=== PATIENT | female | born 1935 | race Two or more races ===

== ENCOUNTER 2016-09-11 10:27 | Inpatient (IN) | payer MEDICARE, OTHER ==
[~2016-09-11] VITALS: Ht 157.5 cm; Wt 83.9 kg
[2016-09-11 10:58] LABS: BASOPHILS % (AUTO) 0.4 % (0.0-2.0); DIFF TOTAL % 100 %; EOSINOPHILS % (AUTO) 0.1 % (0.0-6.0); HEMATOCRIT 40 % (33-45); HEMOGLOBIN 13.4 g/dL (11.5-14.8); LYMPHOCYTES # (AUTO) 0.7 /CMM (0.8-4.8); LYMPHOCYTES % (AUTO) 9.8 % (20.0-44.0); MEAN CORPUSCULAR HEMOGLOBIN 30 PG (26.0-33.0); MEAN CORPUSCULAR HGB CONC 34 g/dl (31.0-36.0); MEAN CORPUSCULAR VOLUME 91 fL (82-100); MONOCYTES % (AUTO) 14.3 % (2.0-12.0); NEUTROPHILS # (AUTO) 5.6 /CMM (1.8-8.9); NEUTROPHILS % (AUTO) 75.4 % (43.0-81.0); PLATELET COUNT (AUTO) 173 /CMM (150-450); RED BLOOD CELL COUNT(AUTO) 4.41 MIL/uL (4.0-5.2); WHITE BLOOD COUNT (AUTO) 7.3 K/uL (4.3-11.0)
[2016-09-11] MEDS ORDERED: IV NS 0.9% 1,000 ML ONE (11:01)
[2016-09-11] MEDS ORDERED: IV SET PRIMARY PUMP SET 1 EA INFUS.SET MC ONE ×4 (11:01→14:16)
[2016-09-11 11:02] LABS: ANION GAP 14 (5-14); CALCIUM, SERUM 9.6 mg/dL (8.5-10.1); CARBON DIOXIDE 25 mmol/L (21-32); CHLORIDE 102 mmol/L (98-107); CREATININE 2.2 mg/dL (0.6-1.3); GLUCOSE 102 mg/dL (74-106); POTASSIUM 3.2 mmol/L (3.5-5.1); SODIUM SERUM 138 mmol/L (136-145); UREA NITROGEN, BLOOD 39 mg/dL (7-18)
[2016-09-11 11:06] LABS: INR 0.9 (0.87-1.13); PROTHROMBIN TIME 9.4 SECS (9.5-12.7)
[2016-09-11 11:08] LABS: ALANINE AMINOTRANSFERASE 17 U/L (12-78); ASPARTATE AMINOTRANSFERASE 33 U/L (15-37); BILIRUBIN,DIRECT 0.1 mg/dL (0.0-0.2); BILIRUBIN,TOTAL 0.5 mg/dL (0.2-1.0); INDIRECT BILIRUBIN 0.4 mg/dL (0.0-1.1); TOTAL PROTEIN, SERUM 7.3 g/dL (6.4-8.2)
[2016-09-11 11:10] LABS: TROPONIN I < 0.017 ng/mL (0.00-0.056)
[2016-09-11 11:19] LABS: BAND % (MANUAL) 7 % (0.0-5.0); LYMPHOCYTES % (MANUAL) 7 % (16-48); PLATELET ESTIMATE ADEQUATE
[2016-09-11] MEDS ORDERED: ACETAMINOPHEN ES 500 MG TABLET ONE (11:25)
[2016-09-11 11:30] LABS: KETONES,URINE Negative (NEGATIVE); LEUKOCYTE ESTERASE ,URINE Negative (NEGATIVE); PH,URINE 5.5 (5.0-8.0)
[2016-09-11] MEDS ORDERED: ACETAMINOPHEN ES 500 MG TABLET PO ONE (11:30)
[2016-09-11] MEDS ORDERED: IV NS 0.9% 1,000 ML BAG IV ONE (11:30)
[2016-09-11 11:31] LABS: ADD UA MICROSCOPIC YES
[2016-09-11] MEDS ORDERED: CELE200C PO (11:46)
[2016-09-11] MEDS ORDERED: VALS80TA2 PO (11:46)
[2016-09-11] MEDS ORDERED: ASPI-991 PO (11:46)
[2016-09-11] MEDS ORDERED: AMLO5TAB2 PO (11:46)
[2016-09-11] MEDS ORDERED: HYDR25TA4 PO (11:46)
[2016-09-11 11:50] LABS: ADD URINE CULTURE NO
[2016-09-11 11:52] LABS: WBC,URINE 0-3 /HPF (0-3)
[2016-09-11] MEDS ORDERED: LEVOFLOXACIN 750 MG /D5W 150ML 150 ML IV ONE ×2 (12:30→12:33)
[2016-09-11] MEDS ORDERED: IV SET PRIMARY 1 EA INFUS.SET MC ONE (12:59)
[2016-09-11] MEDS ORDERED: CEFTRIAXONE 1GM BAG (ER ONLY) 50 ML IV ONE (12:59)
[2016-09-11] MEDS ORDERED: AZITHROMYCIN 500 MG in IV D5W 250 ML IV ONE (13:00)
[2016-09-11] MEDS ORDERED: CEFTRIAXONE 1 G in IV D5W 50 ML IV ONE (13:00)
[2016-09-11] MEDS ORDERED: MAGNESIUM HYDROXIDE 30 ML UDC PO PRN (13:30)
[2016-09-11] MEDS ORDERED: Z GUARD REMEDY 2 OZ OINT TP PRN (13:30)
[2016-09-11] MEDS ORDERED: MAG HYDROX/AL HYDROX/SIMETH 30 ML UDC PO PRN (13:30)
[2016-09-11] MEDS ORDERED: ONDANSETRON HCL/PF 4 MG/2 ML VIAL IVP PRN (13:30)
[2016-09-11] MEDS ORDERED: ZOLPIDEM TARTRATE 5 MG TABLET PO PRN (13:30)
[2016-09-11] MEDS ORDERED: HYDROCODONE/APAP 5/325MG 1 EACH TABLET PO PRN (13:30)
[2016-09-11 13:50] VITALS: BP 120/69
[2016-09-11] MEDS: ASPIRIN EC 81 MG TABLET.DR PO SCH (14:23)
[2016-09-11] MEDS: AMLODIPINE BESYLATE 5 MG TABLET PO SCH (14:24)
[2016-09-11] MEDS: IV NS 0.9% 1,000 ML IV PRN (14:24)
[2016-09-11] MEDS: PANTOPRAZOLE 40 MG TABLET.DR PO SCH (14:24)
[2016-09-11] MEDS ORDERED: POTASSIUM CHLORIDE 10 MEQ TABLET.SA PO ONE (15:00)
[2016-09-11 16:00] VITALS: BP 106/59
[2016-09-11 20:00] VITALS: BP 120/66
[2016-09-11] MEDS ORDERED: ENOXAPARIN SODIUM 40 MG/0.4 ML DISP.SYRIN SQ SCH (21:00)
[2016-09-11] MEDS: ENOXAPARIN SODIUM 30 MG/0.3 ML DISP.SYRIN SQ SCH (21:02)
[2016-09-11] MEDS: ACETAMINOPHEN 325 MG TABLET PO PRN (22:20)
[2016-09-11] MEDS ORDERED: LEVALBUTEROL HCL NEB 1.25 MG/0.5 ML VIAL.NEB NEB PRN (23:30)
[2016-09-12] VITALS: BP_SYST 107; BP_SYST 153; BP_DIAS 63; BP_DIAS 67
[2016-09-12] MEDS ORDERED: LEVALBUTEROL HCL NEB 1.25 MG/0.5 ML VIAL.NEB ONE (00:39)
[2016-09-12 04:00] VITALS: BP 115/61
[2016-09-12] MEDS: IV NS 0.9% 1,000 ML IV PRN (04:59)
[2016-09-12 06:48] LABS: BASOPHILS % (AUTO) 0.2 % (0.0-2.0); DIFF TOTAL % 100 %; HEMATOCRIT 34 % (33-45); HEMOGLOBIN 11.1 g/dL (11.5-14.8); LYMPHOCYTES # (AUTO) 1.2 /CMM (0.8-4.8); LYMPHOCYTES % (AUTO) 15.6 % (20.0-44.0); MEAN CORPUSCULAR HEMOGLOBIN 30 PG (26.0-33.0); MEAN CORPUSCULAR HGB CONC 32 g/dl (31.0-36.0); MEAN CORPUSCULAR VOLUME 91 fL (82-100); MONOCYTES # (AUTO) 1.1 /CMM (0.1-1.30); MONOCYTES % (AUTO) 13.8 % (2.0-12.0); NEUTROPHILS # (AUTO) 5.6 /CMM (1.8-8.9); NEUTROPHILS % (AUTO) 70.4 % (43.0-81.0); PLATELET COUNT (AUTO) 169 /CMM (150-450); RED BLOOD CELL COUNT(AUTO) 3.75 MIL/uL (4.0-5.2); WHITE BLOOD COUNT (AUTO) 7.9 K/uL (4.3-11.0)
[2016-09-12 07:50] LABS: ALBUMIN 2.4 g/dL (3.4-5.0); BILIRUBIN,TOTAL 0.3 mg/dL (0.2-1.0); CALCIUM, SERUM 8.7 mg/dL (8.5-10.1); CREATININE 1.6 mg/dL (0.6-1.3); PHOSPHORUS 3.4 mg/dL (2.5-4.9); POTASSIUM 3.3 mmol/L (3.5-5.1); TOTAL PROTEIN, SERUM 6.2 g/dL (6.4-8.2)
[2016-09-12 08:00] VITALS: BP 145/64
[2016-09-12] MEDS: PANTOPRAZOLE 40 MG TABLET.DR PO SCH (09:16)
[2016-09-12] MEDS: ASPIRIN EC 81 MG TABLET.DR PO SCH (09:16)
[2016-09-12] MEDS: AMLODIPINE BESYLATE 5 MG TABLET PO SCH (09:16)
[2016-09-12] MEDS: IPRATROPIUM NEB FS 0.5 MG/2.5 ML AMPUL.NEB NEB SCH ×4 (11:07→23:38)
[2016-09-12] MEDS: GUAIFENESIN LA 600 MG TABLET.SA PO SCH ×2 (11:09→20:36)
[2016-09-12] MEDS: CEFTRIAXONE 1 G in IV D5W 50 ML IV SCH (11:09)
[2016-09-12] MEDS ORDERED: SECONDARY IV SET 1 EA INFUS.SET MC ONE (11:54)
[2016-09-12 12:00] VITALS: BP 155/75
[2016-09-12] MEDS: AZITHROMYCIN 500 MG in IV D5W 250 ML IV SCH (12:01)
[2016-09-12] MEDS: ALBUTEROL FS 2.5 MG/3 ML VIAL.NEB NEB PRN (15:06)
[2016-09-12 16:00] VITALS: BP 149/62
[2016-09-12] MEDS: LACTOBACILLUS RHAMNOSUS GG 1 EACH CAP.SPRINK PO SCH (16:50)
[2016-09-12] MEDS: ACETAMINOPHEN 325 MG TABLET PO PRN (19:39)
[2016-09-12 20:00] VITALS: BP 147/73
[2016-09-12] MEDS: ENOXAPARIN SODIUM 30 MG/0.3 ML DISP.SYRIN SQ SCH (20:37)
[2016-09-13] VITALS (7 sets, daily range): BP systolic 116–149; BP diastolic 54–81
[2016-09-13] MEDS: IV NS 0.9% 1,000 ML IV PRN (00:08)
[2016-09-13] MEDS: IPRATROPIUM NEB FS 0.5 MG/2.5 ML AMPUL.NEB NEB SCH ×6 (03:37→23:55)
[2016-09-13] MEDS: ALBUTEROL FS 2.5 MG/3 ML VIAL.NEB NEB PRN ×2 (03:40→07:26)
[2016-09-13 06:45] LABS: BASOPHILS % (AUTO) 0.4 % (0.0-2.0); DIFF TOTAL % 100 %; EOSINOPHILS % (AUTO) 0.1 % (0.0-6.0); HEMATOCRIT 33 % (33-45); HEMOGLOBIN 10.9 g/dL (11.5-14.8); LYMPHOCYTES # (AUTO) 1.2 /CMM (0.8-4.8); LYMPHOCYTES % (AUTO) 16.2 % (20.0-44.0); MEAN CORPUSCULAR HEMOGLOBIN 30 PG (26.0-33.0); MEAN CORPUSCULAR HGB CONC 33 g/dl (31.0-36.0); MEAN CORPUSCULAR VOLUME 91 fL (82-100); MONOCYTES # (AUTO) 1.2 /CMM (0.1-1.30); MONOCYTES % (AUTO) 16.5 % (2.0-12.0); NEUTROPHILS # (AUTO) 4.9 /CMM (1.8-8.9); NEUTROPHILS % (AUTO) 66.8 % (43.0-81.0); PLATELET COUNT (AUTO) 160 /CMM (150-450); RED BLOOD CELL COUNT(AUTO) 3.61 MIL/uL (4.0-5.2); WHITE BLOOD COUNT (AUTO) 7.4 K/uL (4.3-11.0)
[2016-09-13 06:54] LABS: CALCIUM, SERUM 8.8 mg/dL (8.5-10.1); CREATININE 0.9 mg/dL (0.6-1.3); POTASSIUM 3.2 mmol/L (3.5-5.1)
[2016-09-13] MEDS: LACTOBACILLUS RHAMNOSUS GG 1 EACH CAP.SPRINK PO SCH ×2 (08:29→17:32)
[2016-09-13] MEDS: ACETAMINOPHEN 325 MG TABLET PO PRN (08:30)
[2016-09-13] MEDS: ASPIRIN EC 81 MG TABLET.DR PO SCH (08:30)
[2016-09-13] MEDS: AMLODIPINE BESYLATE 5 MG TABLET PO SCH (08:30)
[2016-09-13] MEDS: GUAIFENESIN LA 600 MG TABLET.SA PO SCH ×2 (08:31→21:03)
[2016-09-13] MEDS: PANTOPRAZOLE 40 MG TABLET.DR PO SCH (08:31)
[2016-09-13 09:28] LABS: BAND % (MANUAL) 3 % (0.0-5.0); LYMPHOCYTES % (MANUAL) 19 % (16-48); PLATELET ESTIMATE ADEQUATE
[2016-09-13] MEDS ORDERED: POTASSIUM CHLORIDE 20 MEQ TAB.PRT.SR PO ONE ×2 (10:00)
[2016-09-13] MEDS ORDERED: IV SET PRIMARY PUMP SET 1 EA INFUS.SET MC ONE (12:25)
[2016-09-13] MEDS: Potassium Chloride 40 MEQ in IV NS 0.9% 1,000 ML IV PRN (12:29)
[2016-09-13] MEDS: CEFTRIAXONE 1 G in IV D5W 50 ML IV SCH (12:30)
[2016-09-13] MEDS ORDERED: SECONDARY IV SET 1 EA INFUS.SET MC ONE (12:32)
[2016-09-13] MEDS: AZITHROMYCIN 500 MG in IV D5W 250 ML IV SCH (13:24)
[2016-09-13] MEDS: ENOXAPARIN SODIUM 30 MG/0.3 ML DISP.SYRIN SQ SCH (21:00)
[2016-09-14] VITALS (9 sets, daily range): BP systolic 127–175; BP diastolic 61–85
[2016-09-14] MEDS ORDERED: hydrALAZINE HCL 10 MG TABLET ONE ×2 (00:33→04:33)
[2016-09-14] MEDS ORDERED: hydrALAZINE HCL 10 MG TABLET PO ONE ×2 (01:00→05:00)
[2016-09-14] MEDS: IPRATROPIUM NEB FS 0.5 MG/2.5 ML AMPUL.NEB NEB SCH ×6 (03:16→23:33)
[2016-09-14] MEDS: Potassium Chloride 40 MEQ in IV NS 0.9% 1,000 ML IV PRN ×2 (04:38→23:21)
[2016-09-14 07:01] LABS: CALCIUM, SERUM 9.1 mg/dL (8.5-10.1); CREATININE 0.7 mg/dL (0.6-1.3)
[2016-09-14] MEDS: PANTOPRAZOLE 40 MG TABLET.DR PO SCH (08:21)
[2016-09-14] MEDS: ASPIRIN EC 81 MG TABLET.DR PO SCH (08:26)
[2016-09-14] MEDS: GUAIFENESIN LA 600 MG TABLET.SA PO SCH ×2 (08:27→21:06)
[2016-09-14] MEDS: AMLODIPINE BESYLATE 5 MG TABLET PO SCH (08:27)
[2016-09-14] MEDS: LACTOBACILLUS RHAMNOSUS GG 1 EACH CAP.SPRINK PO SCH ×2 (08:27→18:14)
[2016-09-14] MEDS: CEFTRIAXONE 1 G in IV D5W 50 ML IV SCH (12:43)
[2016-09-14] MEDS ORDERED: AZITHROMYCIN 250 MG TABLET PO SCH (13:00)
[2016-09-14] MEDS ORDERED: ALBUTEROL FS 2.5 MG/0.5 ML VIAL.NEB NEB PRN (15:00)
[2016-09-14] MEDS ORDERED: IPRATROPIUM NEB FS 0.5 MG/2.5 ML AMPUL.NEB NEB PRN (15:00)
[2016-09-14] MEDS: ACETAMINOPHEN 325 MG TABLET PO PRN (16:36)
[2016-09-14 19:24] LABS: KETONES,URINE NEGATIVE (NEGATIVE); LEUKOCYTE ESTERASE ,URINE NEGATIVE (NEGATIVE)
[2016-09-14 19:27] LABS: ADD UA MICROSCOPIC YES
[2016-09-14 19:38] LABS: ADD URINE CULTURE NO; RBC,URINE 51-80 /HPF (0-2); WBC,URINE 0-2 /HPF (0-3)
[2016-09-14] MEDS: AMOX/CLAVULANATE 875 MG TABLET PO SCH (21:06)
[2016-09-15 02:00] VITALS: BP 155/85
[2016-09-15] MEDS ORDERED: IPRATROPIUM NEB FS 0.5 MG/2.5 ML AMPUL.NEB ONE (02:14)
[2016-09-15] MEDS: IPRATROPIUM NEB FS 0.5 MG/2.5 ML AMPUL.NEB NEB SCH ×4 (03:33→15:39)
[2016-09-15 04:00] VITALS: BP 167/79
[2016-09-15 06:49] LABS: CALCIUM, SERUM 9.3 mg/dL (8.5-10.1); CREATININE 0.6 mg/dL (0.6-1.3); POTASSIUM 4.1 mmol/L (3.5-5.1)
[2016-09-15 06:59] LABS: BASOPHILS % (AUTO) 0.2 % (0.0-2.0); DIFF TOTAL % 100 %; EOSINOPHILS # (AUTO) 0.1 /CMM (0.0-0.7); EOSINOPHILS % (AUTO) 1.7 % (0.0-6.0); HEMATOCRIT 38 % (33-45); HEMOGLOBIN 12.4 g/dL (11.5-14.8); LYMPHOCYTES # (AUTO) 1.9 /CMM (0.8-4.8); MEAN CORPUSCULAR HEMOGLOBIN 30 PG (26.0-33.0); MEAN CORPUSCULAR HGB CONC 33 g/dl (31.0-36.0); MEAN CORPUSCULAR VOLUME 91 fL (82-100); MONOCYTES % (AUTO) 13.5 % (2.0-12.0); NEUTROPHILS # (AUTO) 4.2 /CMM (1.8-8.9); NEUTROPHILS % (AUTO) 58.6 % (43.0-81.0); PLATELET COUNT (AUTO) 229 /CMM (150-450); RED BLOOD CELL COUNT(AUTO) 4.17 MIL/uL (4.0-5.2); WHITE BLOOD COUNT (AUTO) 7.2 K/uL (4.3-11.0)
[2016-09-15 08:00] VITALS: BP 168/84
[2016-09-15] MEDS: LACTOBACILLUS RHAMNOSUS GG 1 EACH CAP.SPRINK PO SCH ×2 (08:42→17:13)
[2016-09-15] MEDS: ASPIRIN EC 81 MG TABLET.DR PO SCH (08:42)
[2016-09-15] MEDS: GUAIFENESIN LA 600 MG TABLET.SA PO SCH (08:42)
[2016-09-15] MEDS: AMLODIPINE BESYLATE 5 MG TABLET PO SCH (08:42)
[2016-09-15] MEDS: PANTOPRAZOLE 40 MG TABLET.DR PO SCH (08:42)
[2016-09-15] MEDS: AMOX/CLAVULANATE 875 MG TABLET PO SCH (08:42)
[2016-09-15] MEDS ORDERED: IV SET PRIMARY PUMP SET 1 EA INFUS.SET MC ONE (11:25)
[2016-09-15] MEDS: CEFTRIAXONE 1 G in IV D5W 50 ML IV SCH (11:55)
[2016-09-15] MEDS: ALBUTEROL FS 2.5 MG/3 ML VIAL.NEB NEB PRN (15:40)
[2016-09-15 16:00] VITALS: BP 162/84
[2016-09-15] MEDS ORDERED: AMLODIPINE BESYLATE 5 MG TABLET PO ONE (17:00)
[2016-09-15 17:13] VITALS: BP 162/84
== END 2016-09-15 18:15 | disposition home or self-care (01) | DRG 193 ==
LOC: ER 10:29 → TELE1 12:29 → MEDSG1 09-14 14:12
PROVIDERS: ADMIT Internal Medicine; ATTEND Internal Medicine
DX: J15.9 Unspecified bacterial pneumonia (principal); N17.0 Acute kidney failure with tubular necrosis; G92 Toxic encephalopathy; J32.4 Chronic pansinusitis; I11.9 Hypertensive heart disease without heart failure; E66.9 Obesity, unspecified; I67.2 Cerebral atherosclerosis
CPT/HCPCS: 36415; 70450-TC; 71010-TC; 80048-TC; 80053-TC; 80061-TC; 80076-TC; 81000-TC; 83605-TC; 83690-TC; 83735-TC; 84100-TC; 84484-TC; 85025-TC; 85730-TC; 87040-TC; 87081-TC; 87086-TC; 87400; 94799-TC; 97001-TC; 97110-TC; 97116-TC; 97530-TC; A4606; J0456; J0696; J1650; J1956; J3480; J7030; J7060; Z7610